=== PATIENT | female | born 1975 | race American Indian/Alaskan Native ===

== ENCOUNTER 2019-10-18 18:58 | Emergency (ER) | payer SELFPAY ==
[2019-10-18 19:03] VITALS: BP 141/82
[2019-10-18] MEDS ORDERED: PHENAZOPYRIDINE 200 MG TAB PO ONE (19:42)
[2019-10-18] MEDS ORDERED: ONDANSETRON 4 MG ODT TAB PO ONE (19:43)
[2019-10-18 20:04] LABS: Bacteria,Urine 1+ /HPF (Negative); Bilirubin,Urine NEG (Negative); Blood,Urine NEG (Negative); Color,Urine Yellow (Yellow); HCG Qualitative,Urine Negative (Negative); Mucus,Urine FEW /HPF; Protein,Urine <15 mg/dL mg/dL (Negative); Urobilinogen,Urine < 2.0 mg/dL (<2.0)
[2019-10-18 20:56] LABS: Basophils # (Auto) 0.1 K/mm3 (0.0-0.1); Basophils % (Auto) 0.8 % (0.0-1.8); Eosinophils % (Auto) 0.3 % (0.0-4.3); Hematocrit 36.4 % (30.3-42.9); Hemoglobin 12.1 gm/dl (10.1-14.3); Lymphocytes # (Auto) 1.5 K/mm3 (1.2-5.4); Lymphocytes % (Auto) 20.2 % (13.4-35.0); Mean Corpuscular HGB Conc 33 % (30-34); Mean Corpuscular Volume 87 fl (79-97); Monocytes # (Auto) 0.4 K/mm3 (0.0-0.8); Monocytes % (Auto) 5.5 % (0.0-7.3); Platelet Count 250 K/mm3 (140-440); Red Blood Count 4.21 M/mm3 (3.65-5.03); Red Cell Distribution Width 14.6 % (13.2-15.2)
[2019-10-18 21:11] LABS: Alanine Aminotransferase 7 units/L (7-56); Albumin 4.5 g/dL (3.9-5); BUN/Creatinine Ratio 18; Blood Urea Nitrogen 11 mg/dL (7-17); Calcium 9.3 mg/dL (8.4-10.2); Hemolysis Index 2
--- NOTE | 2019-10-18 21:55 | Emergency Department Report ---
ED Female HPI - General Chief complaint: Urogenital-Female Stated complaint: UTI Source: patient Mode of arrival: Ambulatory Limitations: No Limitations - History of Present Illness Initial comments: Patient is a 44-year-old -[place] female with a history of chronic ut erine fibroids who presented to the ED with acute onset persistent urinary frequency and urgency and suprapubic pressure for the last 2 days. Patient also complains of nausea in the last 12 hours. Patient denies fever, chills, vomiting, diarrhea, dysuria, vaginal bleeding, vaginal discharge, low back pain, abdominal pain, chest pain, shortness of breath, sore throat, dizziness or dyspareunia. MD Complaint: pelvic pain (pressure), other (urinary urgency and frequency) -: Sudden, days(s) (2) Location: suprapubic Radiation: non-radiating Severity: moderate Severity scale (0 -10): 5 Quality: dull, aching Consistency: constant Improves with: none Worsens with: urination Are you Now?: No Associated Symptoms: denies other symptoms. denies: vaginal discharge, vaginal bleeding, abdominal pain, nausea/vomiting, fever/chills, headaches, loss of appetite, dysuria, hematuria, rash, seizure, shortness of breath, syncope, weakness - Related Data Sexually active: Yes Previous Rx's Medication Instructions Recorded Last Taken Type Ondansetron [Zofran Odt] 4 mg PO Q6HR PRN #15 tab.rapdis 10/18/19 Unknown Rx Oxybutynin [Ditropan] 5 mg PO Q8H #60 tab 10/18/19 Unknown Rx Allergies Allergy/AdvReac Type Severity Reaction Status Date / Time No Known Allergies Allergy Unverified 10/18/19 18:59 ED Review of Systems ROS: Stated complaint: UTI Other details as noted in HPI Constitutional: denies: chills, fever Eyes: denies: eye pain, eye discharge, vision change ENT: denies: ear pain, throat pain Respiratory: denies: cough, shortness of breath, wheezing Cardiovascular: denies: chest pain, palpitations Endocrine: no symptoms reported Gastrointestinal: denies: abdominal pain, nausea, diarrhea Genitourinary: urgency, dysuria, frequency, other (pelvic pressure). denies: discharge Musculoskeletal: denies: back pain, joint swelling, arthralgia Skin: denies: rash, lesions Neurological: denies: headache, weakness, paresthesias Psychiatric: denies: anxiety, depression Hematological/Lymphatic: denies: easy bleeding, easy bruising ED Past Medical Hx - Past Medical History Additional medical history: FIBROIDS - Social History Smoking Status: Never Smoker - Medications Home Medications: Home Medications Medication Instructions Recorded Confirmed Last Taken Type Ondansetron [Zofran Odt] 4 mg PO Q6HR PRN #15 tab.rapdis 10/18/19 Unknown Rx Oxybutynin [Ditropan] 5 mg PO Q8H #60 tab 10/18/19 Unknown Rx ED Physical Exam - General Limitations: No Limitations General appearance: alert, in no apparent distress - Head Head exam: Present: atraumatic, normocephalic, normal inspection - Eye Eye exam: Present: normal appearance, PERRL, EOMI Pupils: Present: normal accommodation - ENT ENT exam: Present: normal exam, normal orophraynx, mucous membranes moist, TM's normal bilaterally, normal external ear exam - Neck Neck exam: Present: normal inspection, full ROM - Respiratory Respiratory exam: Present: normal lung sounds bilaterally. Absent: respiratory distress, wheezes, rales, rhonchi, chest wall tenderness, accessory muscle use, decreased breath sounds - Cardiovascular Cardiovascular Exam: Present: regular rate, normal rhythm, normal heart sounds. Absent: systolic murmur, diastolic murmur, rubs, gallop - GI/Abdominal GI/Abdominal exam: Present: soft, normal bowel sounds. Absent: tenderness, guarding, rebound, hyperactive bowel sounds, hypoactive bowel sounds, organomegaly - Bi-manual exam: Present: other (pelvic exam deferred) - Extremities Exam Extremities exam: Present: normal inspection, full ROM, normal capillary refill. Absent: tenderness, pedal edema, joint swelling - Back Exam Back exam: Present: normal inspection, full ROM. Absent: tenderness, CVA tenderness (R), CVA tenderness (L), muscle spasm, paraspinal tenderness - Neurological Exam Neurological exam: Present: alert, oriented X3, CN II-XII intact, normal gait, reflexes normal - Psychiatric Psychiatric exam: Present: normal affect, normal mood - Skin Skin exam: Present: warm, dry, intact, normal color. Absent: rash ED Course Vital Signs 10/18/19 19:01 Temperature 97.8 F Pulse Rate 86 Respiratory 20 Rate Blood Pressure 141/82 O2 Sat by Pulse 100 Oximetry ED Medical Decision Making - Lab Data Result diagrams: 10/18/19 20:36 10/18/19 20:36 - Medical Decision Making This is a 44-year-old female who presented to the ED with acute onset persistent nausea, suprapubic pressure with urinary frequency and urgency for the last 2 days. In the ED, patient is alert and oriented x3 and is not in distress. Lab test results were reviewed and are all nonactionable. Patient was treated in the ED for nausea and also given. Based on the patient's history and physical exam findings as well as lab test results, patient likely has bladder spasms as there is no sign of UTI based on the urinalysis test. Patient was discharged home on medications and advised to follow-up with [facility] physician in 5 to 7 days for reevaluation or return to the ED immediately if symptoms get worse. - Differential Diagnosis Bladder spasms; UTI; PID; Critical care attestation.: If time is entered above; I have spent that time in minutes in the direct care of this critically ill patient, excluding procedure time. ED Disposition Clinical Impression: Bladder spasms, Urinary urgency, Nausea and vomiting in adult Disposition: DC-01 TO HOME OR SELFCARE Is pt being admited?: No Does the pt Need Aspirin: No Condition: Stable Instructions: Acute Nausea and Vomiting (ED) Additional Instructions: Take medication with food, drink plenty of fluids and follow-up with your primary care physician or [facility] physician in 5 to 7 days for reevaluation. Return to the ED immediately if symptoms get worse. Prescriptions: Oxybutynin [Ditropan] 5 mg PO Q8H #60 tab Ondansetron [Zofran Odt] 4 mg PO Q6HR PRN #15 tab.rapdis PRN Reason: Nausea Referrals: TABATHA KHALIL MD [Staff Physician] - 7-10 days Time of Disposition: 21:58 Print Language: IRISH
== END 2019-10-18 22:40 | disposition home or self-care (01) ==
LOC: ED 18:58
DX: N32.89 Other specified disorders of bladder (principal); R11.2 Nausea with vomiting, unspecified; R39.15 Urgency of urination
CPT/HCPCS: 36415; 80053; 81001; 81025; 83690; 85025; 99283; Q0162